=== PATIENT | female | born 1965 | race Caucasian/White ===

== ENCOUNTER 2025-03-11 05:34 | Observation (INO) | payer OTHER ==
--- NOTE | 2025-03-03 14:35 | ELECTROCARDIOGRAPH REPORT ---
[facility] Test Date: 2025-03-03 Test Time: 14:33:39 Pat Name: HERNANDEZ NORWOOD Department: [facility]-PRE-OP Patient ID: [facility]-[id number] Room: Gender: F Logistics Supply Officer: dionte : 1965 Requested By: MARCIO GR Order Number: [id number] Reading MD: Dr. CHICO Joyner Measurements Intervals [place] Rate: 53 P: 30 DC: 169 QRS: 56 QRSD: 103 T: 30 QT: 423 QTc: 398 Interpretive Statements Sinus bradycardia Electronically Signed On 03-03-2025 19:48:[address] CHICO Joyner Please click the below link to view image of tracing.
[2025-03-03 14:37] LABS: MEAN PLATELET VOLUME 8.0 FL (7.4-10.4); RED CELL DISTRIBUTION WIDTH 13.5 % (11.5-14.5)
[2025-03-03 14:52] LABS: CREATININE 0.68 MG/DL (0.40-0.90); TOTAL CARBON DIOXIDE 32.1 MMOL/L (24-32); eGFR 89 ML/MIN
[2025-03-11] VITALS (25 sets, daily range): BP systolic 114–155; BP diastolic 45–88; PULSE 53–86; RESP 10–18; TEMP 96.7–97.9; O2SAT 53–100
[~2025-03-11] VITALS: Ht 160 cm; Wt 76.2 kg
[~2025-03-11 05:34] MED LIST: ASCO500C17 PO; CALC-159 PO; DICL75TA5 PO; DULO30CA52 PO; EZET10TA80 PO; GABA-530 PO; LEVO75TA7 PO; PANT40TA54 PO
[2025-03-11] MEDS: ceFAZolin 2gm/dext,iso 50mL 50 ML IV ONE (06:05)
[2025-03-11] MEDS: ringers solution, lacted 1,000 ML IV SCH ×2 (06:05→07:20)
[2025-03-11] MEDS ORDERED: LIDOcaine 1% 30ml preserv. free vial ONE (06:43)
[2025-03-11] MEDS ORDERED: BUPIVAcaine 2.5mg/ml inj 50ml vial (contains preservative) ONE (06:43)
[2025-03-11] MEDS ORDERED: midazolam 1 mg/ML 2ml injection ONE (07:14)
[2025-03-11] MEDS ORDERED: fentaNYL /PF 50mcg/ml 5ml ampule ONE (07:14)
[2025-03-11] MEDS ORDERED: rocuronium 10mg/ml inj IV ONE ×2 (07:15→08:43)
[2025-03-11] MEDS ORDERED: ondansetron/PF 4mg/2ml inj ONE (07:15)
[2025-03-11] MEDS ORDERED: dexamethasone sod phosphate 4mg/ml inj. ONE (07:15)
[2025-03-11] MEDS ORDERED: acetaminophen 1000 MG/100ml vial IV ONE (07:15)
[2025-03-11] MEDS ORDERED: LIDOcaine 2% (20mg/ml) 5ml vial ONE (07:15)
[2025-03-11] MEDS ORDERED: glycopyrrolate 0.2mg/ml inj ONE (07:15)
[2025-03-11] MEDS ORDERED: propofol inj 20 ML IV ONE (07:15)
[2025-03-11] MEDS ORDERED: ondansetron/PF 4mg/2ml inj IV PRN (07:20)
[2025-03-11] MEDS ORDERED: fentaNYL/PF 50MCG/1 ML 2ML syringe IV PRN (07:20)
[2025-03-11] MEDS ORDERED: hydrALAZINE 20mg/ml inj. IV PRN (07:20)
[2025-03-11] MEDS ORDERED: labetalol 20mg/4ml (5mg/ml) syringe IV PRN (07:20)
--- NOTE | 2025-03-11 07:39 | HISTORY AND PHYSICAL ---
History & Physical Providers to CC CC: MARCIO GR MD ~ History of Present Illness Reason for Admit\Complaint: Paraesophageal hernia History of Present Illness Interval history and physical exam Patient here today for elective repair of a paraesophageal hernia She was seen in the office last month but denies any change in her past medical history (please see previous history physical exam for all pertinent details) She is scheduled for robotic assisted, laparoscopic paraesophageal hernia repair with mesh Allergies: Coded Allergies: No Known Allergies (Unverified , 03/10/25) Home Medications Home Medications Active Reported Calcium + Vitamin D Tablet (Calcium/Vitamin D) 1 Each Tablet 1 Tab PO DAILY Levothyroxine Sodium 75 Mcg Tablet 1 Tab PO DAILY Vitamin C (Ascorbic Acid) 500 Mg Capsule 1 Cap PO DAILY Ezetimibe 10 Mg Tablet 1 Tab PO DAILY 30 Days Diclofenac Sodium 75 Mg Tablet.dr 1 Tab PO BID Pantoprazole Sodium 40 Mg Tablet.dr 1 Tab PO DAILY 30 Days Duloxetine HCl 30 Mg Capsule.dr 1 Cap PO BID 30 Days Gabapentin 100 Mg Capsule 1 Cap PO Q8H 30 Days ROS ROS Reviewed and negative with the exception of intractable heartburn Exam Vitals: Vital Signs Date Time Temp Pulse Resp B/P (MAP) Pulse Ox O2 Delivery O2 Flow Rate FiO2 03/11/25 06:47 16 53 Room Air 03/11/25 06:44 96.7 53 137/86 (103) General: 59-year-old female in no acute distress Chest: Lungs are clear to auscultation bilaterally Cardiovascular: Regular rate and rhythm without murmurs Abdomen: Soft and nondistended Problems: (1) Paraesophageal hernia Status: Chronic Assessment & Plan: The risks, benefits, and alternatives to a robotic assisted, laparoscopic paraesophageal hernia repair with mesh were discussed with the patient. Risks include, but are not limited to, bleeding, infection, injury to intra-abdominal structures, trouble swallowing, chronic diarrhea, gastroparesis and the need for additional surgical procedures. Patient verbalized understanding and wishes to proceed with surgery. We will do so as scheduled today. She will likely require overnight observation for pain control and postoperative monitoring. MARCIO GR MD Mar 11, 2025 07:39
[2025-03-11] MEDS ORDERED: labetalol 20mg/4ml (5mg/ml) syringe IV ONE (08:08)
[2025-03-11] MEDS: LIDOcaine 1% 30ml preserv. free vial IJ ONE (08:13)
[2025-03-11] MEDS: BUPIVAcaine/PF 2.5 mg/ml (0.25%) 30ml vial IJ ONE (08:13)
[2025-03-11] MEDS: morphine 4 MG/ML inj SYRINge IV PRN (10:00)
--- NOTE | 2025-03-11 10:12 | RADIOLOGY REPORT ---
DI CHEST,SINGLE VIEW, HISTORY: POST OP COMPARISON: None None TECHNICAL DATA: 1 view of the chest was obtained. FINDINGS: Lines and tubes: None Cardiomediastinal silhouette: normal Pulmonary vasculature: normal Lung expansion: normal Lung airspace: normal Lung interstitium: normal Pleura: normal Pneumothorax: no Bones: Unremarkable Other: Prominent bilateral neck subcutaneous emphysema and left chest wall subcutaneous emphysema. IMPRESSION: Prominent bilateral neck subcutaneous emphysema and left chest wall subcutaneous emphysema.
[2025-03-11] MEDS: fentaNYL/PF 50MCG/1 ML 2ML syringe IV PRN (10:29)
[2025-03-11] MEDS: magnesium hydroxide 30ml (MOM) UD suspension PO SCH (10:34)
[2025-03-11] MEDS: normal saline 1000ml 1,000 ML IV SCH (10:57)
[2025-03-11] MEDS: HYDROmorph/NS 0.2 mg/ml PCA 100 ML IV SCH (11:00)
--- NOTE | 2025-03-11 11:18 | OPERATIVE REPORT ---
Operative Report Providers to CC CC: CESAR GR MD ~ Date of Procedure: Mar 11, 2025 Pre-Operative Diagnosis: paraesophageal hernia Post-Operative Diagnosis Type 3 paraesophageal hernia Congenital diaphragmatic hernia Procedure Performed Robotic assisted, laparoscopic paraesophageal hernia repair with mesh Surgeon: Cesar Gr MD FACS [employer] [place] None Anesthesiologist: Tyler Ga Type of Anesthesia: General Findings: Large type 3 paraesophageal hernia with a proximally 20% of the stomach herniated above the hiatus Right sided moderate-sized congenital diaphragmatic hernia (not addressed during this surgery) Complications None Prosthetics\Implants used: Phasix mesh Estimated Blood Loss: Minimal Specimen Removed: Hernia sac and GE fat pad excised and discarded Description of Procedure: Patient was brought to the operating room and identified by the nursing staff and the attending physician. Patient was placed supine and general anesthesia was induced. Preoperative antibiotics were given. Delong catheter was placed. The abdomen was prepped and draped in the standard sterile fashion. At Booth's point, Veress needle technique was used through a stab incision to access and insufflate the abdomen. This was accomplished without incident. An optical, 12 mm trocar was used to gain access to the abdomen in the left upper quadrant under laparoscopic visualization. Additional 8.5 mm robotic trochars were placed under laparoscopic visualization in the left lateral upper abdomen, left epigastrium and right upper quadrant. Patient was placed in steep, reverse Trendelenburg position. The da Es robotic arm was docked to the patient and instruments guided into the abdomen under laparoscopic visualization. The left lobe of the liver was lifted and the hiatus inspected. Fairly large hiatal defect was noted. What appeared to be 20-25% of the stomach was above the hiatus. An 18 inch, 0, V-Loc suture was used to sling the left lobe of the liver up to the anterior abdominal wall. I was able to reduce the 20% of the stomach out of the chest cavity and the GE junction was visible right at the level of the hiatus with the retraction. With the stomach retracted towards the patient's left upper quadrant, dissection was initiated along the pars flaccida and the lesser sac was entered. The lesser omentum was divided up to the right radhames. There was not a replaced left hepatic artery. Dissection was carried in to the mediastinum. The mediastinal space was entered. Dissection was then carried posteriorly along the right radhames, taking care to leave peritoneum overlying the muscles. Once the posterior decussation was encountered, attention was then turned to the short gastric vessels. Stomach was retracted toward the patient's right and the short gastric vessels were placed on tension. The short gastric vessels were divided along the upper portion of the greater curvature, up to the phrenoesophageal ligament which was also then divided. The peritoneal reflection of the left radhames was opened and dissection carried up until the apex of the crura was reached. Dissection was carried up into the mediastinum, mobilizing the esophagus from the retrocardiac space and taking care not to injure the bilateral pleura. The entire hernia sac which was moderate in size, was mobilized out of the mediastinum and reduced into the abdomen. Excess sac was dissected at the level of the gastroesophageal fat pad and set aside. The retroesophageal space was developed. The GE junction was retracted anteriorly and the mediastinal dissection was carried out posterior to the esophagus. Dissection continued until at least 3 cm of intra-abdominal esophagus was obtained without any retraction on the stomach. With the stomach retracted anteriorly, adequate space and visualization was obtained to allow for the crural repair. Strips of bioabsorbable, Phasix mesh were used to reinforce the crural repair. A strip of mesh was placed over each crura and used for reapproximation without tension. Attention was then turned to the gastropexy. Fundus was anchored to the upper left portion of the hiatus with full-thickness crural sutures. The suture was then run along the greater curvature creating a gastropexy to the anterior abdominal wall. Care was taken to stay medial to the phrenic nerve and vascular bundle. About a fourth of the gastric fundus was anchored to the anterior abdominal wall. Attention was then turned to the modified Hill proc edure/augmentation stitch. The angle of His was then recreated with a running, 2/0, absorbable, V-Loc suture. This was run between the fundus and the lateral border of the intra-abdominal esophagus. This suture was run up to the level of the left radhames. Gastropexy was then completed by running the midportion of the gastric fundus towards the initial gastropexy suture and anchoring the 2 together. [place] and sutures were retrieved. The da Es robotic arm was undocked from the patient. The 12 mm port was removed and the fascial defect closed percutaneously with 0 Vicryl suture. Remaining ports were removed and the abdomen was allowed to deflate. Skin was closed at all sites with 4-0 Monocryl sutures and dressed with Dermabond. Patient was extubated and transferred to the postanesthesia care unit in stable condition. Counts repoted as correct: Yes CESAR GR MD Mar 11, 2025 11:18
[2025-03-11] MEDS: potassium CL 20mEq in D5-1/2NS 1,000 ML IV SCH (13:45)
[2025-03-11] MEDS: ondansetron/PF 4mg/2ml inj IV PRN (17:40)
[2025-03-11] MEDS: [UNRECOGNIZED DRUG - REMARK] PO SCH (20:00)
[2025-03-11] MEDS: duloxetine 30mg CAPSULE.DR PO SCH (21:25)
[2025-03-12 02:00] VITALS: BP 149/65; PULSE 58; RESP 16; TEMP 98.2; O2SAT 93
[2025-03-12] MEDS ORDERED: oxyCODONE/APAP 5-325mg tablet PO PRN (07:00)
[2025-03-12] MEDS: levoTHYROXINE 75mcg tablet PO SCH (07:47)
[2025-03-12] MEDS: enoxaparin 40mg/0.4ml syringe SQ SCH (07:49)
[2025-03-12] MEDS: oxyCODONE/APAP 5-325mg tablet PO ONE (07:58)
[2025-03-12 09:43] VITALS: RESP 16
[2025-03-12 09:49] VITALS: RESP 18; O2SAT 94
[2025-03-12 13:00] VITALS: RESP 16
[2025-03-12] MEDS ORDERED: PER5325T PO (13:03)
[2025-03-12] MEDS: PCA WASTE DOCUMENTATION 1 MG ML MC SCH (13:25)
== END 2025-03-12 14:50 | disposition home or self-care (01) ==
LOC: PAS 05:34 → EDSTATUS 07:30 → PAS IN 10:08 → SUR 3N 11:33
PROVIDERS: ADMIT Surgery; ATTEND Surgery
DX: K44.9 Diaphragmatic hernia without obstruction or gangrene (principal); R42 Dizziness and giddiness; J44.9 Chronic obstructive pulmonary disease, unspecified; I10 Essential (primary) hypertension; M19.90 Unspecified osteoarthritis, unspecified site; Z79.899 Other long term (current) drug therapy; Z98.890 Other specified postprocedural states
CPT/HCPCS: 36415; 43282; 71045; 80053; 82948; 85025; 93005; 96372; 96374; C1781; G0378; J0131; J1100; J1171; J1650; J2003; J2250; J2270; J2405; J2704; J2710; J3010; J3480; J3490; J7030; J7120; S2900; A4615; A4618; A6250

== ENCOUNTER 2025-03-25 09:47 | Emergency (ER) | payer OTHER, MEDICAID ==
[~2025-03-25] VITALS: Ht 160 cm; Wt 73.9 kg
[~2025-03-25 09:47] MED LIST changes: +PER5325T PO
[2025-03-25 10:22] VITALS: BP 159/112; PULSE 86; RESP 14; TEMP 98; O2SAT 96
--- NOTE | 2025-03-25 10:35 | Physician Documentation ---
History of Present Illness ~ Chief Complaint: Constipation Stated Complaint: CONSTIPATION Time Seen by MD: 09:54 Mode of Arrival: Ambulatory HPI 49-year-old female presents to the ED after having a hernia repair two weeks ago. States she has a long history of constipation and compaction. She is unaware if he has ever had a small bowel obstruction. States she has not had a bowel movement for two days and feels as though there is hard stool in her rectal vault. Patient denies any fevers she states she is just afraid to strain to hard while going to the bathroom secondary to her recent surgery Day of Onset: Mar 25, 2025 Medication Reconciliation Allergies: Coded Allergies: No Known Allergies (Unverified , 03/25/25) Scheduled Ascorbic Acid (Vitamin C), 1 CAP PO DAILY, (Reported) Calcium Carbonate/Vitamin D3 (Calcium + Vitamin D Tablet), 1 TAB PO DAILY, (Reported) Diclofenac Sodium (Diclofenac Sodium), 1 TAB PO BID, (Reported) Duloxetine HCl (Duloxetine HCl), 1 CAP PO BID, (Reported) Ezetimibe (Ezetimibe), 1 TAB PO DAILY, (Reported) Gabapentin (Gabapentin), 1 CAP PO Q8H, (Reported) Levothyroxine Sodium (Levothyroxine Sodium), 1 TAB PO DAILY, (Reported) Pantoprazole Sodium (Pantoprazole Sodium), 1 TAB PO DAILY, (Reported) Polyethylene Glycol 3350 (Miralax), 17 GM PO DAILY Polyethylene Glycol 3350* (Miralax*), 1 PKT PO DAILY Scheduled PRN Oxycodone Hcl/Acetaminophen 5/325 MG* (Percocet 5/325 MG*), 1 TAB PO Q4H PRN for moderate or severe pain 4-10 Review of Systems All Other Systems at this time: Reviewed and Negative ROS As stated above in the HPI, otherwise all systems are reviewed and negative. Physical Exam Vital Signs: Temperature: 98.0, Source: Temporal, Heart Rate: 86, Respiratory Rate: 14, BP: 159/112, Pulse Oximetry: 96, Weight: 73.900 Oxygen Flow Rate: 0 Physical Exam General: Alert, no apparent distress. Respiratory: Lungs clear, no respiratory distress. Cardiovascular: Regular rate and rhythm, no murmurs. Gastrointestinal: Soft, tender in the midepigastric and left lower quadrant. Neurologic: Oriented x4. Psychiatric: Normal mood and affect. Skin: Normal color, warm and dry. No edema, no ecchymosis. Progress Results/Orders Results/Orders Completed Orders - KRISH DAHL GLUING MACHINE OPERATOR ELECTRONIC Magnesium Citrate Oral Shani. (Magnesium C (03/25/25 10:30) * Administer Enema * (03/25/25 11:00) * Soap Suds Enema* (03/25/25 11:07) Vital Signs 03/25/25 03/25/25 03/25/25 03/25/25 10:02 10:22 10:23 12:49 Temp 97.0 98.0 Pulse 72 86 Resp 17 14 B/P (MAP) 146/90 159/112 (128) Pulse Ox 97 96 O2 Flow Rate 0 Medical Decision Making Additional information obtaine: old records Findings After multiple avenues of treatment in the ED to treat constipation, the patient reported a a very large bowel movement and feels much better. He is currently requesting to be discharged. I advised her to use MiraLax regularly to maintain adequate soft bowel movements Diff Dx GI Bleed:Consideration: Include: AE fistula, Angiodysplasia, Bleeding diathesis, Blood loss anemia, Carcinoma, Diverticulosis, Diverticulitis, Esophageal varicies, Esophagitis, Gastritis, Gastroenteritis, Inflammatory BD, Palma-Quintero syndrome, Meckel's diverticulum, PUD, Other Diff Dx Pain:Considerations: Include: AAA, -Complete, - Incomplete, -Inevitable, -Missed, -Threatened, Abruptio placentae, Angina/PR, Aortic dissection, Appendicitis, Bowel obstruction, Cholangitis, Cholecystitis, Cholelithasis, Constipation, Diverticular disease, Dysmenorrhea, Ectopic , Esophageal rupture, Esophagitis, Gastritis/PUD, Gastroenteritis, GI hemorrhage, Hernia, Hepatitis, Inflammatory BD, Ischemic bowel, Mass, Ovarian cyst/torsion, Pancreatitis, PID, Porphyria, Trauma, intraabdominal, Urinary obstruction, Urinary tract infection, Urolithiasis, Other Diff Dx N/V/D:Considerations: Include: Appendicitis, Bowel obstruction, Dehydration, DKA, Diarrhea - bacterial, Diarrhea - parasitic, Diarrhea - viral, Diverticulitis, Diverticulosis, Drug toxicity, Electrolyte imbalance, Food poisoning, Gastroenteritis, GE reflux, GI bleed, Hepatitis, Hernia, Hypovolemia, Hypotension, Inflammatory BD, Impaction, Malnutrition, Pancreatitis, , PUD, Renal failure, Urolithiasis, Urinary obstruction, UTI, Other Diff Dx Rectal:Considerations: Unlikely: Fissure, Fistula, Foreign body, Impaction, Perirectal abscess, Rectal prolapse, Subcutaneous abscess, Thrombosed hemorrhoid, Ulcer, UTI, Other Departure Disposition: HOME / SELF CARE / HOMELESS Impression: Primary Impression: Constipation Additional Impression: Fecal impaction Condition: Improved Discharge Instructions: Constipation, Adult Referrals: NO PRIMARY CARE PROVIDER (PCP) Prescriptions Polyethylene Glycol 3350 (Miralax) 17 Gram/Dose Powder 17 GM PO DAILY for constipation, #255 GM 0 Refills dissolve in water Prov: KRISH DAHL NP 03/25/25 Polyethylene Glycol 3350* (Miralax*) 1 Packet Packet 1 PKT PO DAILY for constipation, #30 PKT dissolve in water Prov: KRISH DAHL NP 03/25/25 Education Educated: Patient Educated regarding: diagnosis Signature Scribe Signature: j Attestation: Scribed for Krish Dahl Tuber Operator by Krish Bennett NP . 03/25/25 10:35 KRISH DAHL NP Mar 25, 2025 10:35
[2025-03-25] MEDS: magnesium citrate 296ml oral solution PO ONE (10:41)
[2025-03-25] MEDS ORDERED: POLY17PO10 PO (12:29)
[2025-03-25] MEDS ORDERED: POLY119P2 PO (13:00)
== END 2025-03-25 12:50 | disposition home or self-care (01) ==
LOC: ER 09:48
DX: K59.00 Constipation, unspecified (principal); Z79.899 Other long term (current) drug therapy
CPT/HCPCS: 99284

== ENCOUNTER 2025-04-30 14:13 | Emergency (ER) | payer OTHER, MEDICAID ==
[~2025-04-30] VITALS: Ht 160 cm; Wt 73.3 kg
[~2025-04-30 14:13] MED LIST changes: +POLY119P2 PO
[2025-04-30 14:18] VITALS: TEMP 98.9
--- NOTE | 2025-04-30 14:31 | Physician Documentation ---
History of Present Illness ~ Chief Complaint: Rectal Bleeding Stated Complaint: RECTAL BLEEDING Time Seen by MD: 14:29 HPI Patient is a very pleasant 59-year-old female that presents to the emergency department for evaluation of blood in her stool x3 days. Patient reports that she has no significant rectal pain but does present with lower right quadrant pain intermittently none today as she is here in the triage room. Patient denies fever and chills does report some nausea but she associates that with the recent surgery back in February. Patient denies taking blood thinners at this time. Patient denies any history significant for known hemorrhoids but has had a colonoscopy previously that showed several polyps. Patient denies blood in her urine patient denies intermittent blood during between the time of bowel movements but does note mild to moderate amounts of blood covering her stool with each bowel movement. Patient denies current chest pain but does reports intermittent episodes of twinges chest pain no chest pressure with radiation no headache no vision changes. Patient does report intermittent episodes of lightheadedness and dizziness. No other symptoms reported at this time. Medication Reconciliation Allergies: Coded Allergies: No Known Allergies (Unverified , 04/30/25) Scheduled Ascorbic Acid (Vitamin C), 1 CAP PO DAILY, (Reported) Calcium Carbonate/Vitamin D3 (Calcium + Vitamin D Tablet), 1 TAB PO DAILY, (Reported) Diclofenac Sodium (Diclofenac Sodium), 1 TAB PO BID, (Reported) Duloxetine HCl (Duloxetine HCl), 1 CAP PO BID, (Reported) Ezetimibe (Ezetimibe), 1 TAB PO DAILY, (Reported) Gabapentin (Gabapentin), 1 CAP PO Q8H, (Reported) Levothyroxine Sodium (Levothyroxine Sodium), 1 TAB PO DAILY, (Reported) Pantoprazole Sodium (Pantoprazole Sodium), 1 TAB PO DAILY, (Reported) Polyethylene Glycol 3350 (Miralax), 17 GM PO DAILY Scheduled PRN Oxycodone Hcl/Acetaminophen 5/325 MG* (Percocet 5/325 MG*), 1 TAB PO Q4H PRN for moderate or severe pain 4-10 Discontinued Medications Polyethylene Glycol 3350* (Miralax*), 1 PKT PO DAILY Discontinued Reason: Auto Discontinued Review of Systems ROS As stated above in the HPI, otherwise all systems are reviewed and negative. Physical Exam Vital Signs: Temperature: 98.9, Source: Oral, Heart Rate: 95, Respiratory Rate: 18, BP: 133/83, Pulse Oximetry: 94, Weight: 73.300 Oxygen Flow Rate: 0 Physical Exam VITALS: Reviewed and as above. GENERAL: Alert, no apparent distress. HEENT: Normocephalic, atraumatic, PERRL, EOMI, dry mucosa, no erythema RESPIRATORY: Lungs clear, normal breath sounds, no respiratory distress. CHEST: No accessory muscle use, no retractions CV: Regular rate, rhythm, no edema, no murmur, No: JVD GI: Soft, tenderness in the lower right quadrant intermittently over the last couple of months no complaints of tenderness today, bowels sounds present, no rebound, guarding, or rigidity BACK: No CVA tenderness, or swelling MUSCULOSKELETAL No deformities, no edema SKIN: Warm and dry, no rash NEURO: Oriented x4, No motor or sensory deficit PSYCH: Normal mood and affect, no agitation Progress Results/Orders Results/Orders Orders - ADELE BESS Hs Troponin I W Calculations (04/30/25 16:50) Vital Signs 04/30/25 04/30/25 04/30/25 14:18 15:17 16:04 Temp 98.9 Pulse 95 61 Resp 18 16 16 B/P (MAP) 133/83 118/78 (91) Pulse Ox 94 96 O2 Flow Rate 0 0 Laboratory Tests Test 04/30/25 14:54 04/30/25 16:50 White Blood Count 6.1 Red Blood Count 4.22 Hemoglobin 13.7 Hematocrit 40.1 Mean Corpuscular Volume 95.1 Mean Corpuscular Hemoglobin 32.3 H Mean Corpuscular Hemoglobin Concent 34.0 Red Cell Distribution Width 13.3 Platelet Count 247 Mean Platelet Volume 8.4 Neutrophils (%) (Auto) 52.0 Lymphocytes (%) (Auto) 33.9 Monocytes (%) (Auto) 9.1 Eosinophils (%) (Auto) 3.9 Basophils (%) (Auto) 1.1 H Neutrophils # (Auto) 3.2 Lymphocytes # (Auto) 2.1 Monocytes # (Auto) 0.6 Eosinophils # (Auto) 0.2 Basophils # (Auto) 0.1 CBC Comment Sodium Level 142 Potassium Level 4.1 Chloride Level 107 Carbon Dioxide Level 29.6 Anion Gap 5 L Blood Urea Nitrogen 13 Creatinine 0.61 Estimated GFR/1.73 m2 > 90 BUN/Creatinine Ratio 21.3 H Glucose Level 92 Calcium Level 8.7 Total Bilirubin 0.6 Aspartate Amino Transf (AST/SGOT) 17 Alanine Aminotransferase (ALT/SGPT) 15 Alkaline Phosphatase 67 Troponin I High Sensitivity < 4 L Troponin I High Sens Percent Delta Troponin I Hi Sens Absolute Change Pro-B-Type Natriuretic Peptide 126 H Total Protein 6.5 Albumin 3.4 Globulin 3.1 Albumin/Globulin Ratio 1.1 Lipase 16 Chemistry Comments Urine Specimen Description Cln catch midstream Urine Color Straw Urine Clarity Clear Urine pH 7.0 Urine Specific [place] 1.010 Urine Protein Negative Urine Glucose (UA) Negative Urine Ketones Negative Urine Occult Blood Negative Urine Nitrite Negative Urine Bilirubin Negative Urine Urobilinogen 0.2 Urine Leukocyte Esterase Small H Urine RBC 0-2 Urine WBC 0-4 Urine Squamous Epithelial Cells None seen Urine Bacteria None seen Urine Mucus None seen Urine Culture Indicated Indicated Volume Urine Centrifuged 10 ml Urine Comment Medical Decision Making Additional information obtaine: other Findings Chief Complaint: Hematochezia for 3 days History of Present Illness: 59-year-old female presented to the emergency department with 3 days of blood in stool. Patient reports mild to moderate blood covering stool with each bowel movement, no blood between bowel movements, and no blood in urine. Associated symptoms include intermittent right lower quadrant abdominal pain (currently resolved), nausea (attributed to recent October surgery), and intermittent lightheadedness and dizziness. Patient denies rectal pain, fever, chills, current chest pain (reports intermittent "twinges" without pressure or radiation), headache, or vision changes. No known history of hemorrhoids. History of colonoscopy with polyps. Denies anticoagulant or antiplatelet use. Physical Examination: Hemodynamically stable. Abdominal examination without acute findings. Rectal examination performed. Diagnostic Studies: Hemoglobin: >14 g/dL (normal, no anemia) Urinalysis: negative Imaging (x-rays): negative for acute pathology Assessment and Plan: Lower gastrointestinal bleeding, self-limited. The patient presents with low- risk hematochezia based on hemodynamic stability, preserved hemoglobin, absence of ongoing bleeding, and no anticoagulant use. The most common etiologies of lower GI bleeding in this age group include diverticular disease (40% of cases), hemorrhoids, angiodysplasia, and colorectal neoplasia. Given the patient's history of colonic polyps, colorectal neoplasia remains in the differential and warrants outpatient evaluation. [1-5] Risk stratification supports outpatient management. The patient lacks high-risk features including hypotension, tachycardia, ongoing hematochezia, hemoglobin <12 g/dL, or elevated creatinine. Conservative management with outpatient colonoscopy is appropriate for patients with self-limited bleeding and stable vital signs, particularly when recent high-quality colonoscopy has been performed or when bleeding has resolved. [1-2] Disposition: Discharge home with close outpatient follow-up. The patient does not require urgent inpatient colonoscopy given cessation of bleeding, hemodynamic stability, and normal hemoglobin. Outpatient colonoscopy should be scheduled within 2 weeks for diagnostic evaluation, particularly given the history of polyps and need to exclude colorectal neoplasia as a bleeding source. [1][5] Discharge instructions: Return to ED immediately for recurrent bleeding, lightheadedness, syncope, chest pain, shortness of breath, or abdominal pain. Follow up with gastroenterology for colonoscopy. Maintain adequate hydration. Avoid NSAIDs and aspirin until evaluated by gastroenterology. Follow-up: Outpatient gastroenterology appointment for colonoscopy within 2 weeks. Primary care follow-up as needed for symptom monitoring. Occult stool sample positive at this time. No overt bleeding noted in the rectal vault during rectal examination. Diff Dx GI Bleed:Consideration: Include: AE fistula, Angiodysplasia, Bleeding diathesis, Blood loss anemia, Carcinoma, Diverticulosis, Diverticulitis, Esophageal varicies, Esophagitis, Gastritis, Gastroenteritis, Inflammatory BD, Palma-Quintero syndrome, Meckel's diverticulum, PUD, Other Diff Dx Pain:Considerations: Include: AAA, -Complete, - Incomplete, -Inevitable, -Missed, -Threatened, Abruptio placentae, Angina/[place], Aortic dissection, Appendicitis, Bowel obstruction, Cholangitis, Cholecystitis, Cholelithasis, Constipation, Diverticular disease, Dysmenorrhea, Ectopic , Esophageal rupture, Esophagitis, Gastritis/PUD, Gastroenteritis, GI hemorrhage, Hernia, Hepatitis, Inflammatory BD, Ischemic bowel, Mass, Ovarian cyst/torsion, Pancreatitis, PID, Porphyria, Trauma, intraabdominal, Urinary obstruction, Urinary tract infection, Urolithiasis, Other Diff Dx N/V/D:Considerations: Include: Appendicitis, Bowel obstruction, Dehydration, DKA, Diarrhea - bacterial, Diarrhea - parasitic, Diarrhea - viral, Diverticulitis, Diverticulosis, Drug toxicity, Electrolyte imbalance, Food poisoning, Gastroenteritis, GE reflux, GI bleed, Hepatitis, Hernia, Hypovolemia, Hypotension, Inflammatory BD, Impaction, Malnutrition, Pancreatitis, , PUD, Renal failure, Urolithiasis, Urinary obstruction, UTI, Other Diff Dx Rectal:Considerations: Include: Fissure, Fistula, Foreign body, Impaction, Perirectal abscess, Rectal prolapse, Subcutaneous abscess, Thrombosed hemorrhoid, Ulcer, UTI, Other Departure Disposition: 01 HOME / SELF CARE / HOMELESS Impression: Primary Impression: Rectal bleeding Additional Impression: Internal hemorrhoids Condition: Stable Discharge Instructions: Rectal Bleeding, [id number] Additional Instructions: Your Diagnosis: You came to the emergency department because you had blood in your stool for three days. Your test results showed a small amount of blood in your stool that was not visible to the eye (called occult blood), but no active bleeding was seen during your examination. What This Means: Blood in the stool can come from many different causes. Some are minor, like hemorrhoids (swollen veins near the rectum), while others are more serious and need further testing to find the cause. Your blood tests today were normal, which is reassuring, but you still need follow-up testing to make sure we find and treat the source of bleeding. [3] What You Need to Do: Schedule an appointment with your primary care provider within the next week. Your provider will likely recommend a colonoscopy (a camera test that looks inside your colon) to find the source of bleeding. [1-2][4] Take iron supplements if recommended by your provider, especially if you develop anemia (low blood count). Avoid taking aspirin, ibuprofen (Advil, Motrin), or naproxen (Aleve) unless your doctor tells you to take them. These medications can make bleeding worse. When to Return to the Emergency Department: Come back to the emergency department right away if you experience any of these symptoms: Increased amounts of blood in your stool or toilet Bright red blood or dark, tarry black stools Feeling lightheaded or dizzy, especially when standing up Shortness of breath or trouble breathing Fast or irregular heartbeat (palpitations) Chest pain Severe abdominal pain Weakness or fainting Vomiting blood or vomit that looks like coffee grounds Important Information: Even though hemorrhoids are a common cause of rectal bleeding, it is important not to assume this is the only cause without proper testing. A colonoscopy is recommended for anyone with rectal bleeding to make sure there are no other problems in the colon, such as polyps or other conditions that need treatment. [1-2][5-6] Follow-Up Care: Your primary care provider will coordinate your care and arrange for a colonoscopy. This test is important to find the cause of your bleeding and make sure you receive the right treatment. If you have any questions or concerns before your appointment, please call your primary care provider's office. Referrals: NO PRIMARY CARE PROVIDER (PCP) Education Educated: Patient Educated regarding: diagnosis, treatment, need for follow up Signature Scribe Signature: A Attestation: Scribed for Adele Bess by FATOU Avilez . 04/30/25 17:49 ADELE BESS Apr 30, 2025 14:31
--- NOTE | 2025-04-30 14:45 | ELECTROCARDIOGRAPH REPORT ---
[facility] Test Date: 2025-04-30 Test Time: 14:44:52 Pat Name: HERNANDEZ NORWOOD Department: [facility] Patient ID: [id number] Room: Gender: F Architecture Internship: JESSIKA : 1965 Requested By: JUS KEE Order Number: [id number] Reading MD: Measurements Intervals [place] Rate: 72 P: 49 OH: 161 QRS: 53 QRSD: 95 T: 40 QT: 376 QTc: 412 Interpretive Statements Sinus rhythm Abnormal R-wave progression, early transition Please click the below link to view image of tracing.
--- NOTE | 2025-04-30 14:56 | RADIOLOGY REPORT ---
CHEST RADIOGRAPH INDICATION: CP TECHNIQUE: Single frontal view of the chest was obtained COMPARISON: DI CHEST,SINGLE VIEW on DOS: 03/11/25 FINDINGS: Lines and Tubes: None Lungs: Clear Pleura: No effusion. No pneumothorax. Cardiomediastinal contours: Unremarkable Bones: Unremarkable IMPRESSION: No acute disease.
[2025-04-30 15:35] LABS: MEAN PLATELET VOLUME 8.4 FL (7.4-10.4); RED CELL DISTRIBUTION WIDTH 13.3 % (11.5-14.5)
[2025-04-30 15:47] LABS: CREATININE 0.61 MG/DL (0.40-0.90); TOTAL CARBON DIOXIDE 29.6 MMOL/L (24-32); eCRCL 82 ML/MIN; eGFR > 90 ML/MIN
[2025-04-30 15:56] LABS: PRO BRAIN NATRIURETIC PEPTIDE 126 PG/ML (0-125)
[2025-04-30 17:11] LABS: LEUKOCYTE ESTERASE ,URINE SMALL (Neg); NITRITES, URINE NEGATIVE (Neg); OCCULT BLOOD,URINE NEGATIVE (Neg)
[2025-04-30 17:13] LABS: UA COLLECTION TYPE CLN CATCH MIDSTREAM
[2025-04-30 17:19] LABS: MUCUS STRANDS NONE SEEN /LPF (Neg); SQUAMOUS EPITHELIAL CELL,UR NONE SEEN /LPF (FEW)
[2025-04-30 18:05] VITALS: BP 146/83; PULSE 55; RESP 14; O2SAT 99
[2025-04-30 18:18] LABS: OCCULT BLOOD STOOL POSITIVE (Neg)
== END 2025-04-30 18:07 | disposition home or self-care (01) ==
LOC: ER 14:13
DX: K64.8 Other hemorrhoids (principal); K62.5 Hemorrhage of anus and rectum; R06.2 Wheezing; Z79.899 Other long term (current) drug therapy
CPT/HCPCS: 36415; 71045; 80053; 81001; 82272; 83690; 83880; 84484; 85025; 87088; 93005; 99285